=== PATIENT | male | born 1965 | race Caucasian/White ===

== ENCOUNTER 2016-12-24 21:36 | Inpatient (IN) | payer BC ==
[~2016-12-24] VITALS: Ht 167.6 cm; Wt 71.8 kg
[2016-12-25] MEDS ORDERED: ZOLPIDEM TARTRATE 10 MG TABLET PO PRN (01:45)
[2016-12-25 02:14] VITALS: BP 110/78
[2016-12-25] MEDS: LORazepam 1 MG TABLET PO PRN ×2 (02:33→08:20)
[2016-12-25] MEDS ORDERED: INFLUENZA VIRUS VACCINE QVS 2017-18 (3YR+)/PF 60 MCG/0.5 ML SYRINGE IM ONE (03:00)
[2016-12-25 04:01] VITALS: BP 143/83
[2016-12-25 08:08] VITALS: BP 121/95
[2016-12-25 09:30] VITALS: BP 118/86
[2016-12-25 09:40] LABS: GLUCOSE, URINE (UA) NEGATIVE (NEGATIVE); KETONES,URINE >=80 mg/dL (NEGATIVE); LEUKOCYTE ESTERASE ,URINE NEGATIVE (NEGATIVE); OCCULT BLOOD,URINE SMALL (NEGATIVE); PH,URINE 5.5 (5.0-8.0); PROTEIN,URINE NEGATIVE (NEGATIVE)
[2016-12-25 09:49] LABS: ADD UA MICROSCOPIC YES; APPEARANCE,URINE HAZY (CLEAR)
[2016-12-25 09:50] LABS: WBC,URINE None Seen /HPF (0-5)
[2016-12-25] MEDS ORDERED: BUPR75 PO (10:40)
[2016-12-25] MEDS ORDERED: FLUO-191 PO (10:40)
[2016-12-25] MEDS ORDERED: LORA1TAB3 PO (10:40)
[2016-12-25 16:07] VITALS: BP 108/78
[2016-12-26 01:00] VITALS: BP 110/63
[2016-12-26 09:04] VITALS: BP 103/64
[2016-12-26] MEDS: FLUoxetine HCL 20 MG CAPSULE PO SCH (09:06)
[2016-12-26] MEDS: BuPROPion HCL XL 150 MG ER TABLET PO SCH (09:06)
[2016-12-26 16:22] VITALS: BP 120/85
[2016-12-27 00:08] VITALS: BP 106/64
[2016-12-27] MEDS: FLUoxetine HCL 20 MG CAPSULE PO SCH (08:28)
[2016-12-27] MEDS: BuPROPion HCL XL 150 MG ER TABLET PO SCH (08:29)
[2016-12-27 08:40] VITALS: BP 105/62
== END 2016-12-27 13:00 | disposition home or self-care (01) | DRG 885 ==
LOC: EDSTATUS 21:37 → B2X 12-25 01:54
PROC: 3E0234Z Introduction of Serum, Toxoid and Vaccine into Muscle, Percutaneous Approach (ICD-10-PCS; principal; 2016-12-25)
DX: F33.2 Major depressive disorder, recurrent severe without psychotic features (principal); R45.851 Suicidal ideations; F10.20 Alcohol dependence, uncomplicated; F40.10 Social phobia, unspecified; R31.9 Hematuria, unspecified; S10.91XA Abrasion of unspecified part of neck, initial encounter; X58.XXXA Exposure to other specified factors, initial encounter; F19.10 Other psychoactive substance abuse, uncomplicated; Y93.89 Activity, other specified; Y92.89 Other specified places as the place of occurrence of the external cause; Y99.8 Other external cause status; Z23 Encounter for immunization; Z71.41 Alcohol abuse counseling and surveillance of alcoholic; Z82.0 Family history of epilepsy and other diseases of the nervous system; Z82.49 Family history of ischemic heart disease and other diseases of the circulatory system; Z81.8 Family history of other mental and behavioral disorders
CPT/HCPCS: 80307; 90471